=== PATIENT | male | born 1950 | race Caucasian/White ===

== ENCOUNTER 2017-07-28 00:56 | Inpatient (IN) | payer OTHER ==
[~2017-07-28] VITALS: Ht 188 cm; Wt 113.5 kg
[~2017-07-28 00:56] MED LIST: AMIODARONE HCL200 M1 PO; DIOVAN320 M1 PO; DOXYCYCLINE HYC20 M1 PO; EPLERENONE25 M1 PO; FUROSEMIDE20 M1 PO; LIPITOR10 M1 PO; OMEGA 3-6-9 11200 MG PO; PRADAXA150 M1 PO; SYNTHROID50 MCG PO
--- NOTE | 2017-07-28 08:41 | Patient Discharge Instructions ---
Discharge Instructions General Discharge Information You were seen/treated for: left hip pain You had these procedures: left total hip replacement Do not soak the wound: Yes No bath, but you may shower: Yes Other wound care: daily dry dressing change Special Instructions: To take Eliquis 2.5mg twice daily for 1 week only after surgery, through August 04. Then restart Pradaxa as previously prescribed on August 05. Call Dr. Mac's office with questions or concerns Diet Continue normal diet: Yes Activity Activity Self Limited: Yes Activity Limited to: Weight bear as tolerated (with rolling walker) Acute Coronary Syndrome Inclusion Criteria At DC or during hospital stay patient has or had the following: ACS DIAGNOSIS No Discharge Core Measures Meds if any: Prescribed or Continued at Discharge Meds if any: NOT Prescribed or Continued at Discharge Congestive Heart Failure Inclusion Criteria At DC or during hospital stay patient has or had the following: CHF DIAGNOSIS No Discharge Core Measures Meds if any: Prescribed or Continued at Discharge Meds if any: NOT Prescribed or Continued at Discharge Cerebrovascular accident Inclusion Criteria At DC or during hospital stay patient has or had the following: CVA/TIA Diagnosis No Discharge Core Measures Meds if any: Prescribed or Continued at Discharge Meds if any: NOT Prescribed or Continued at Discharge Venous thromboembolism Inclusion Criteria VTE Diagnosis No VTE Type NONE VTE Confirmed by (Test) NONE Discharge Core Measures - Per Current guidelines, there needs to be overlap - treatment for the first 5 days of Warfarin therapy. - If discharged on Warfarin prior to 5 days of - overlap therapy, the patient will need to be - assessed for post discharge needs including - *Post discharge parental anticoagulation - *Warfarin and/or parental anticoagulation education - *Follow up date to check INR post discharge At least 5 days overlap therapy as Inpatient No Meds if any: Prescribed or Continued at Discharge Note: Overlap Therapy is Warfarin and Anticoagulant Meds if any: NOT Prescribed or Continued at Discharge
--- NOTE | 2017-07-28 08:44 | Surgical Discharge Summary ---
Visit Information Visit Dates Admission Date: 07/28/17 History of Present Illness Chief Complaint: left hip pain Medical History Isolation History: Standard Surgical History Pertinent Surgical History: non-contributory Review of Systems: as per [facility] Hospital Course Course Attending Physician: Brandon Mac MD Primary Care Physician: Song Johns MD Hospital Course: Pt presented to [facility] on 07/28/17 for an elective left total hip arthroplasty. Pt tolerated the procedure well. Post-operatively he voided spontaneously, tolerated PO intake, pain was managed with oral medication, he ambulated with physical therapy and was cleared for discharge to home with home health services. Discharge instructions were reviewed with the patient. He was given instructions to follow-up with Dr. Mac in 6 weeks and to call sooner if he has any questions or concerns Allergies: Coded Allergies: Penicillins (UNKNOWN 07/24/17) Disposition Summary Disposition Principal Diagnosis: primary left hip osreoarthritis Additional Diagnosis: SP Left TREY Discharge Disposition: home health services Discharge Instructions General Discharge Information Code Status: Full Code Patient's Diet: regular Patient's Activity: WBAT with Rolling walker Follow-Up Instructions/Appts: FU with Dr. Mac in 6wks Copies To: Andreas UREÑA,Song Corona
--- NOTE | 2017-07-28 08:45 | Admission Core Measures ---
Acute Coronary Syndrome (CM) ACS Core Measures Acute Coronary Syndrome Diagnosis No Congestive Heart Failure (NEW) CHF Core Measures Congestive Heart Failure Diagnosis No Cerebrovascular Accident (NEW) CVA Core Measures CVA/TIA Diagnosis No Venous Thromboembolism VTE Core Danisha (View Protocol) VTE Risk Factors Surgery No Mechanical VTE Prophylaxis d/t N/A MechProphylax Ordered No VTE Pharm Prophylaxis d/t NA PharmProphylax ordered Problem List As ranked by this Provider includes Assessment & Plan 1. Primary osteoarthritis of left hip HOME MEDS Home Med List Amiodarone (Cordarone) 200 MG TAB 1 TAB PO DAILY CARDIAC (Reported) Atorvastatin Calcium (Lipitor) 10 MG TABLET 1 TAB PO DAILY CHOLESTEROL ( Reported) Dabigatran Etexilate Mesylate (Pradaxa 150 MG) 150 MG CAPSULE 1 CAP PO BID AFIB (Reported) Doxycycline Hyclate 20 MG TABLET 1 TAB PO BID ROSACEA (Reported) Eplerenone 25 MG TABLET 1 TAB PO DAILY CARDIAC (Reported) Fish Oil/Borage/Flax/Om3,6,9#1 ([place] 3-6-9 1,200 MG Softgel) 1,200 MG CAPSULE 1 CAP PO DAILY SUPPLEMENT (Reported) Furosemide 20 MG TABLET 1 TAB PO DAILY CARDIAC (Reported) Levothyroxine Sodium (Synthroid) 50 MCG TABLET 1 TAB PO DAILY HYPOTHYROID ( Reported) Valsartan (Diovan) 320 MG TABLET 1 TAB PO DAILY CARDIAC (Reported)
[2017-07-28] MEDS ORDERED: ELIQUIS2.5 M1 PO (09:16)
[2017-07-28] MEDS ORDERED: PROTONIX20 M1 PO (09:16)
[2017-07-28] MEDS ORDERED: DILAUDID2 M1 PO (09:16)
[2017-07-28] MEDS ORDERED: COLACE100 M1 PO (09:16)
[2017-07-28] MEDS ORDERED: MIRALAX17 G1 PO (09:16)
--- NOTE | 2017-07-28 11:47 | RADIOLOGY REPORT ---
EXAMINATION: XR HIP, LEFT CLINICAL INFORMATION: Status post left total hip replacement. In PACU. COMPARISON: None TECHNIQUE: Two views of the left hip. FINDINGS: Evaluation of the crosstable lateral view is limited due to technical factors and overlapping soft tissues. The patient is status post total left hip arthroplasty with the prosthetic components well seated within the acetabulum. No hardware failure or [place] bone fracture seen. Alignment is anatomic. Soft tissue drain is seen in place. IMPRESSION: Status post total left hip arthroplasty with anatomic alignment and no evidence of hardware failure.
--- NOTE | 2017-07-28 13:07 | PN- Orthopedic ---
Subjective Subjective: Post op check Awake and alert post op without complaints Denies any pain or nausea Has not ambulated yet or voided yet post op Objective Vital Signs and I&Os bp 129/68 RR 16 Sat 97% on 2LNC temp 97.3 HR 60 regular Physical Exam: General: alert and oriented times three Chest: clear anteriorly bilaterally, RRR Abd: soft, good bs Ext: warm, 2+ pulses B DP, no edema, no calf tenderness Wd: dressed, dry, suretrans drain in place 180cc recorded total from OR Assessment/Plan Assessment/Plan 67yo male s/p L THR anterior approach Plan to admit overnight pain management PT - wbat dvt ppx - Hold home dose of pradaxa for one week, eliquis 2.5mg po bid for one week then will restart pradaxa fu drain output fu void Core Measures Venous Thromboembolism VTE Risk Factors Surgery No Mechanical VTE Prophylaxis d/t N/A MechProphylax Ordered No VTE Pharm Prophylaxis d/t NA PharmProphylax ordered
--- NOTE | 2017-07-28 14:33 | Operative Report ---
Operative/Inv Procedure Report Surgery Date: 07/28/17 Name of Procedure: Left total hip replacement Pre-Operative Diagnosis: Primary left hip DJD Post-Operative Diagnosis: Same Estimated Blood Loss: 250 Surgeon/Fisheries Technical Officer: Estefania UREÑA,Brandon Harris Anesthesia: block Operative/Procedure Note Note: Description of Procedure: The patient was taken to the operating room and positively identified. After induction of spinal anesthesia and administration of appropriate pre-operative antibiotics, the patient was positioned supine on the operating room table and all bony prominences were well padded. After performing a surgical timeout, the left lower extremity was prepped and draped in the usual sterile fashion. A direct anterior approach was made to the left hip. The incision was carried sharply through superficial soft tissues to the level of the fascia. Meticulous hemostasis was maintained with Bovie electocautery. The fascia over the tensor fascia krista muscle was opened sharply and the interval between the TFL and the sartorius was entered bluntly taking care to stay lateral to the lateral femoral cutaneous nerve. Retractors were placed around the femoral neck and the pericapsular fat was identified. The ascending branches of the lateral femoral circumflex vessels were identified and carefully coagulated. The pericapsular fat and anterior capsule were then resected. A napkin ring osteotomy was performed and the femoral head was removed without difficulty. Attention was then turned to the acetabulum. After appropriate placement of retractors, the acetabulum was exposed. Soft tissue was cleaned from the acetabular margin and notch. Overhanging osteophytes were removed and the teardrop was exposed. The acetabulum was then sequentially reamed to accept a 60 mm Lingle Tritanium hemispherical solid shell. This was impacted into place in the appropriate position and fitted with a 36 mm Trident X3 zero degree polyethylene insert. Attention was then turned to the femur. After performing the appropriate ligament releases, the proximal femur was exposed. It was then sequentially broached to accept a size 7 Cyndi Accolade II stem. This was trialed for leg length and stability. The trial component was removed and the final component was impacted into place. The trunnion was carefully cleaned and fit with a 36 mm, +0 Biolox delta ceramic femoral head. The hip was reduced and put through a full range of motion and found to be stable. The articular space was then irrigated with sterile saline. The periarticular soft tissues were infilitrated with Marcaine. The fascial layer was closed with interrupted #1 vicryl suture and the skin was re-approximated with interrupted 2 -0 vicryl. The skin was closed with a running 3-0 V-Lock suture. Steri-strips and a sterile dressing were applied. The patient was awakened and taken to the recovery room in satisfactory condition.
[2017-07-28 18:03] VITALS: BP 110/70
[2017-07-28 21:45] VITALS: BP 100/50
[2017-07-29 01:58] VITALS: BP 106/60
[2017-07-29 06:48] VITALS: BP 112/62
--- NOTE | 2017-07-29 07:31 | PN- Orthopedic ---
Subjective Subjective: PT IN BED, ACHY LEFT HIP PAIN 5/10. AMBULATING. VOIDING, NO BM TOLERATING PO, NO N/V DENIES PARESTHESIAS, DENIES CP/SOB, FEVERS Objective Vital Signs and I&Os Vital Signs Date Time Temp Pulse Resp B/P B/P Pulse O2 O2 Flow FiO2 Mean Ox Delivery Rate 07/29 0648 98.1 64 16 112/62 95 Nasal 2.0L Cannula 07/29 0158 97.8 64 16 106/60 95 Nasal 2.0L Cannula 07/28 2145 97.5 73 17 100/50 95 07/28 1803 97.5 70 17 110/70 93 Nasal 2.0L Cannula 07/28 1539 93 Nasal 2.0L Cannula 07/28 1359 Nasal 2.0L Cannula Intake & Output 07/29 0800 07/29 0000 07/28 1600 07/28 0800 07/28 0000 07/27 1600 Intake Total 900 300 Output Total 150 300 Balance 750 0 Intake, IV 600 Intake, Oral 300 300 Output, 150 300 Drainage Patient 250 lb 250 lb Weight Physical Exam: GEN- NAD RESP- CLEAR CARDIAC- RRR ABD- SOFT, NT EXT- RIGHT HIP DRESSING CLEAN AND DRY, THIGH IS SOFT, NT. 2+ LEFT PT AND DP PULSE. DISTAL SENSORY AND MOTOR FUNCTION INTACT DRAIN OUTPUT- 300CC YESTERDAY, 150CC OVERNIGHT Current Medications: Current Medications Sig/Sybil Start time Last Medication Dose Route Stop Time Status Admin Acetaminophen 1,000 MG Q6 07/28 1200 DC 07/29 IV 07/29 0601 0516 Acetaminophen 0 .STK-MED ONE 07/28 0807 DC PO Acetaminophen 975 MG ONE 07/28 0000 DC PO 07/28 2359 Amiodarone HCl 200 MG DAILY 07/29 09 AC PO Amiodarone HCl 200 MG DAILY 07/28 0900 DC PO Apixaban 2.5 MG BID 07/29 0900 AC PO Atorvastatin Calcium 10 MG 1700 07/28 1700 DC PO Atorvastatin Calcium 10 MG 1700 07/28 1700 AC 07/28 PO 1634 Dextrose/Sodium 1,000 ML .[id number] 07/28 1345 DC 07/28 Chloride IV 2356 Docusate Sodium 100 MG BID 07/28 0900 AC 07/28 PO 2050 Eplerenone 25 MG DAILY 07/29 0900 CAN PO Eplerenone 25 MG DAILY 07/28 0900 DC PO Furosemide 20 MG DAILY 07/29 0900 AC PO Furosemide 20 MG DAILY 07/28 0900 DC PO Hydromorphone HCl 2 MG Q4P PRN 07/28 1345 AC 07/29 PO 0213 Hydromorphone HCl 4 MG Q4P PRN 07/28 1345 AC PO Levothyroxine Sodium 0.05 MG DAILY AC 07/29 0700 AC 07/29 PO 0516 Levothyroxine Sodium 0.05 MG DAILY AC 07/28 0900 DC PO Losartan Potassium 50 MG DAILY 07/29 09 AC PO Losartan Potassium 50 MG DAILY 07/28 0900 DC PO Morphine Sulfate 2 MG Q2P PRN 07/28 1345 AC IV Non-Formulary 0 SEE ADMIN CRITERIA 07/28 09 CAN Medication ANY Non-Formulary 0 SEE ADMIN CRITERIA 07/28 09 CAN Medication ANY Omeprazole 20 MG DAILY AC 07/29 0700 AC 07/29 PO 0516 Ondansetron HCl 4 MG Q6P PRN 07/28 1345 AC IV Oxycodone HCl 0 .STK-MED ONE 07/28 0807 DC PO Oxycodone HCl 10 MG ONE 07/28 0000 DC PO 07/28 2359 Polyethylene Glycol 17 GM DAILY 07/28 0900 AC PO Promethazine HCl 12.5 MG Q6P PRN 07/28 1345 AC IV 08/04 0859 Vancomycin HCl 1,500 MG Q12 07/28 2100 DC 07/28 Sodium Chloride 250 ML IV 07/28 2230 2051 Vancomycin HCl 1,500 MG DAILY 07/28 0900 CAN Sodium Chloride 250 ML IV 07/29 0859 Assessment/Plan Assessment/Plan 67 YP MALE SP L TREY POD1. STABLE PT- WBAT, HOPING TO GET CLEARED ON STAIRS LATER TODAY FOR DC TO HOME PAIN MANAGEMENT WITH PO MEDS DVT PPX- ELIQUIS X1WK THEN RESTART PRADAXA REG DIET HOME MEDS FU AM LABS FU DRAIN OUTPUT FOR END OF THIS SHIFT DC PLANNING - PLAN FOR HOME WITH [facility] LATER TODAY Core Measures Venous Thromboembolism VTE Risk Factors Surgery No Mechanical VTE Prophylaxis d/t N/A MechProphylax Ordered No VTE Pharm Prophylaxis d/t NA PharmProphylax ordered
[2017-07-29 09:19] LABS: ABSOLUTE BASOPHIL COUNT 0 /CUMM (0.0-0.2); ABSOLUTE EOSINOPHIL COUNT 0 /CUMM (0.0-0.7); ABSOLUTE GRANULOCYTE CT 7.5 /CUMM (1.4-6.5); ABSOLUTE LYMPH COUNT 0.7 /CUMM (1.2-3.4); ABSOLUTE MONOCYTE COUNT 1.6 /CUMM (0.10-0.60); BASOPHIL % 0.1 % (0.0-2.0); EOSINOPHIL % 0 % (0-5); GRANULOCYTE % 76.3 % (42.2-75.2); HEMATOCRIT 38.8 % (42-52); MEAN CORPUSCULAR HGB 32.5 PG (27.0-31.0); MEAN CORPUSCULAR HGB CONC 33.6 G/DL (33.0-37.0); MEAN CORPUSCULAR VOLUME 96.7 FL (80.0-94.0); MEAN PLATELET VOLUME 8.4 FL (7.4-10.4); PLATELET COUNT 194 /CUMM (130-400); RBC DISTRIBUTION WIDTH 14.1 % (11.5-14.5); RED BLOOD CELL CT 4.01 /CUMM (4.70-6.10); WHITE BLOOD CELL COUNT 9.8 /CUMM (4.8-10.8)
[2017-07-29 12:13] VITALS: BP 120/68
== END 2017-07-29 15:45 | disposition home health service (06) | DRG 470 ==
LOC: SDA 00:56 → ENRESERV 12:03 → ENTRNSPT 12:36 → EDTRNSPTSTS 13:07 → 2NA 13:19 → EDTRNSPT 13:20 → CMPTRNSPT 13:43 → 2NA 07-29 15:45
PROVIDERS: Physician Assistant Surgical
PROC: 0SRB03A Replacement of Left Hip Joint with Ceramic Synthetic Substitute, Uncemented, Open Approach (ICD-10-PCS; principal; 2017-07-28)
DX: M16.12 Unilateral primary osteoarthritis, left hip (principal); I48.91 Unspecified atrial fibrillation; I25.10 Atherosclerotic heart disease of native coronary artery without angina pectoris; M19.90 Unspecified osteoarthritis, unspecified site; Z79.01 Long term (current) use of anticoagulants; Z85.46 Personal history of malignant neoplasm of prostate; E03.9 Hypothyroidism, unspecified; I71.4 Abdominal aortic aneurysm, without rupture; I73.9 Peripheral vascular disease, unspecified; I10 Essential (primary) hypertension
CPT/HCPCS: 2NASP; 36592; 73502-LT; 82436; 97110-GO; 97116-GO; 97161-GP; 97530-GO; J0131; J0735; J1100; J2405; J2550; J3370; J3490; J7040; J7042